=== PATIENT | male | born 1970 | race Caucasian/White ===

== ENCOUNTER 2017-03-15 15:12 | Emergency (ER) | payer BC ==
[~2017-03-15 15:12] MED LIST: GOODY'S EX PO; LORTAB 5 PO; NEUR600 PO; NEXIUM40 PO; [UNRECOGNIZED DRUG - REMARK]
[2017-03-15 15:40] LABS: ASCORBIC ACID (UR NOT ORDER) NEG (NEG); BILIRUBIN, URINE NEGATIVE (NEG); ER URINALYSIS TAT 0 Hrs 10 Mins; KETONE, URINE NEGATIVE (NEG); LEUKOCYTE ESTERASE(NOT OR NEG (NEG); NITRITE (URINE) NEG (NEG); WBC (NOT ORDERED) (RFLEX) 1 (0-5)
[2017-03-15 16:13] LABS: BASOPHILS 0.4 %; BASOPHILS ABSOLUTE 0.04 10/3/uL (0.0-0.16); EOSINOPHILS 3.3 %; EOSINOPHILS ABSOLUTE 0.31 10/3/uL (0.0-0.53); ER CBC TAT 0 Hrs 11 Mins; HEMATOCRIT 43.4 % (40.0-51.0); HEMOGLOBIN 15.8 g/dL (13.6-17.8); IMMATURE GRANULOCYTES 0.2 %; IMMATURE GRANULOCYTES ABSOLUTE 0.02 10/3/uL (0.0-0.11); LYMPHOCYTES 38.6 %; LYMPHOCYTES ABSOLUTE 3.59 10/3/uL (0.67-4.30); MEAN CORPUS HGB CONC 36.4 g/dL (32.0-36.0); MEAN CORPUSCULAR HEMOGLOB 31.3 pg (26.0-34.0); MEAN CORPUSCULAR VOLUME 86.1 fL (80-100); MONOCYTES 10.1 %; MONOCYTES ABSOLUTE 0.94 10/3/uL (0.21-1.20); NEUTROPHILS 47.4 %; PLATELET COUNT 232 10/3/uL (150-400); RBC DISTRIBUTION WIDTH 13.4 % (12.0-16.0); RED CELL COUNT 5.04 10/6/uL (4.7-6.1); WHITE BLOOD CELLS 9.3 10/3/uL (4.5-10.5)
[2017-03-15 16:14] LABS: MANUAL DIFF NO %
[2017-03-15 16:29] LABS: ALBUMIN 4.1 G/DL (3.5-5.0); ALKALINE PHOSPHATASE 56 U/L (45-117); BUN (BLOOD UREA NITROGEN) 17 MG/DL (6-23); CALCIUM, SERUM 9.5 MG/DL (8.5-10.4); CHLORIDE, SERUM 106 MMOL/L (96-112); CO2 (CARBON DIOXIDE) 26 MMOL/L (24-34); CREATININE 0.95 MG/DL (0.70-1.30); GFR AFRICAN AMERICAN 112 ML/MIN (>=60); GFR NON AFRICAN AMERICAN 97 ML/MIN (>=60); GLUCOSE, SERUM 86 MG/DL (60-99); POTASSIUM, SERUM 4.1 MMOL/L (3.5-5.3); SGOT(AST) 18 U/L (5-40); SGPT(ALT) 32 U/L (5-65); SODIUM, SERUM 139 MMOL/L (135-148); TOTAL BILIRUBIN 0.6 MG/DL (0-1.2); TOTAL PROTEIN 8.1 G/DL (6.0-8.5)
== END 2017-03-15 17:29 | disposition home or self-care (01) ==
LOC: ER 15:12
PROVIDERS: Emergency Medicine
DX: M79.1 Myalgia (principal); I10 Essential (primary) hypertension; G47.30 Sleep apnea, unspecified; F17.200 Nicotine dependence, unspecified, uncomplicated; Z79.82 Long term (current) use of aspirin; Z79.899 Other long term (current) drug therapy
CPT/HCPCS: 80053; 81001; 83690; 85025; 99283